=== PATIENT | male | born 1945 | race Caucasian/White ===

== ENCOUNTER 2017-04-09 15:19 | Outpatient (CLI) | END 2017-04-09 15:20 | disposition home or self-care (01) | LOC: CAR 15:19 | PROVIDERS: ATTEND Family Medicine | DX: G47.33 Obstructive sleep apnea (adult) (pediatric) (principal) | CPT/HCPCS: 95810 ==

== ENCOUNTER 2017-04-23 16:32 | Outpatient (CLI) | END 2017-04-23 16:33 | disposition home or self-care (01) | LOC: CAR 16:32 | PROVIDERS: ATTEND Internal Medicine Pulmonary Disease | DX: G47.33 Obstructive sleep apnea (adult) (pediatric) (principal) | CPT/HCPCS: 95811 ==